=== PATIENT | female | born 1985 ===

== ENCOUNTER 2016-05-10 15:04 | Emergency (ER) | payer OTHER ==
[2016-05-10 16:12] VITALS: BP 133/81
--- NOTE | 2016-05-10 16:43 | UC ---
Respiratory Complaint HPI - HPI Summary HPI Summary: Has been coughing for the past 2 weeks, most recently to the point of vomiting. Feels low in energy and out of breath. Chest sore with coughing, poor sleep. Was on cephalexin following a dental extraction, made no difference. FH of asthma and mother age 59 of pneumonia/COPD - History of Current Complaint Chief Complaint: UCRespiratory Stated Complaint: COUGH,CONGESTION Time Seen by Provider: 05/10/16 16:26 Hx Obtained From: Patient Hx Last Menstrual Period: 26 days ag0 Onset/Duration: Gradual Onset, Lasting Weeks - 2 Severity Initially: Mild Severity Currently: Moderate Character: Cough: Nonproductive Aggravating Factors: Exertion, Deep Breaths Alleviating Factors: Nothing Associated Signs And Symptoms: Positive: Dyspnea, Nasal Congestion, Hoarseness - Risk Factors Pulmonary Embolism Risk Factors: Smoking Cardiac Risk Factors: Smoking - Allergies/Home Medications Allergies/Adverse Reactions: Allergies Allergy/AdvReac Type Severity Reaction Status Date / Time 'cillins AdvReac See Comment Uncoded 05/10/16 16:13 Home Medications: Home Medications Finished Keflex 05/05/16 500 mg PO BID 05/10/16 [History Confirmed 05/10/16] PMH/Surg Hx/FS Hx/Imm Hx Previously Healthy: Yes - smoker x 10 year - Surgical History Surgical History: Yes Surgery Procedure, Year, and Place: - ; tubal ligation 2012 - Family History Known Family History: Positive: Respiratory Disease - mother COPD/ pneumonia age 59; son with asthma - Social History Occupation: Employed Full-time Alcohol Use: None Substance Use Type: None Smoking Status (MU): Heavy Every Day Tobacco Smoker Review of Systems Constitutional: Fatigue Skin: Negative Eyes: Negative ENT: Sore Throat, Ear Ache Respiratory: Cough Cardiovascular: Negative Gastrointestinal: Vomiting - secondary to cough Genitourinary: Negative Motor: Negative Neurovascular: Negative Musculoskeletal: Negative Neurological: Negative Psychological: Negative All Other Systems Reviewed And Are Negative: Yes Physical Exam Triage Information Reviewed: Yes Appearance: Well-Nourished, Ill-Appearing - looks unwell with congested cough Vital Signs: Initial Vital Signs Temp 98.2 F 05/10/16 16:04 Pulse 89 05/10/16 16:04 Resp 18 05/10/16 16:04 BP 133/81 05/10/16 16:04 Pulse Ox 100 05/10/16 16:04 Vital Signs Reviewed: Yes Eyes: Positive: Conjunctiva Clear ENT: Positive: Pharyngeal erythema, TMs normal Dental Exam: Normal Neck: Positive: Supple, Enlarged Nodes @ - right anterior cervical--tender mobile compressible node. Respiratory: Positive: Decreased breath sounds - to both bases, Wheezing - with prolonged expiration Cardiovascular: Positive: RRR, No Murmur Musculoskeletal Exam: Normal Neurological Exam: Normal Neurological: Positive: Alert Psychological Exam: Normal Skin Exam: Normal UC Diagnostic Evaluation - Laboratory O2 Sat by Pulse Oximetry: 100 Respiratory Course/Dx - Course Course Of Treatment: zithromax, albuterol as needed, prednisone, off work. - Differential Dx/Diagnosis Differential Diagnosis/HQI/PQRI: Asthma, Bronchitis, Lower Resp Infection, Sinusitis Provider Diagnoses: bronchitis, smoking dependency Discharge - Discharge Plan Condition: Stable Disposition: HOME Prescriptions: Albuterol 2.5MG/3ML (0.083%)* [Ventolin 2.5 MG/3 ML NEB.MERVIN*] 2.5 mg INH Q6H PRN #60 neb.mervin PRN Reason: Wheezing Azithromyxin RICHAR (NF) [Z-Richar (Zithromax) 250 mg tabs #6] 2 tab PO .TODAY, THEN 1 DAILY #6 tab Nicotine GUM* 1 tab PO Q2H PRN #200 gum PRN Reason: Withdrawal - Nicotine predniSONE TAB* [Deltasone TAB*] 2 tab PO DAILY #10 tab Patient Education Materials: Acute Bronchitis (ED), How to Stop Smoking (ED) Forms: *Work Release
== END 2016-05-10 17:02 | disposition home or self-care (01) ==
LOC: UCCORT 15:04
DX: J40 Bronchitis, not specified as acute or chronic (principal); F17.210 Nicotine dependence, cigarettes, uncomplicated; Z88.0 Allergy status to penicillin
CPT/HCPCS: 99212; G0463

== ENCOUNTER 2016-05-16 09:18 | Emergency (ER) | payer OTHER ==
[2016-05-16 10:31] VITALS: BP 136/83
--- NOTE | 2016-05-16 10:44 | UC ---
Throat Pain/Nasal Mitesh HPI - HPI Summary HPI Summary: compalint of nasal congestion and cough approx 2 weeks ago seen at [facility] 05/10/16-dx with bronchitis- zpack and prednisone took the medication and felt better for 3 days then it returned yesterday evening nasal congestion returned, copius amounts of purulent sputum has had a fever and chills, ears hurt pain in forehead , face and teeth not taking any medication for symptoms - History of Current Complaint Chief Complaint: UCRespiratory Stated Complaint: HEAD CONGESTION Time Seen by Provider: 05/16/16 10:35 Hx Obtained From: Patient Hx Last Menstrual Period: due any day - Allergies/Home Medications Allergies/Adverse Reactions: Allergies Allergy/AdvReac Type Severity Reaction Status Date / Time 'cillins AdvReac See Comment Uncoded 05/16/16 10:31 PMH/Surg Hx/FS Hx/Imm Hx Previously Healthy: No - bronchitis - Surgical History Surgical History: Yes Surgery Procedure, Year, and Place: - ; tubal ligation 2012 - Family History Known Family History: Positive: Respiratory Disease - mother COPD/ pneumonia age 59; son with asthma Negative: Cardiac Disease, Hypertension - Social History Occupation: Employed Full-time Lives: With Family Alcohol Use: None Substance Use Type: None Smoking Status (MU): Heavy Every Day Tobacco Smoker Cessation Counseling: Patient Advised to Stop Review of Systems Constitutional: Fever Skin: Negative Eyes: Negative ENT: Ear Ache, Nasal Discharge Respiratory: Cough Cardiovascular: Negative Gastrointestinal: Negative Genitourinary: Negative Motor: Negative Neurovascular: Negative Musculoskeletal: Negative Neurological: Negative Psychological: Negative All Other Systems Reviewed And Are Negative: Yes Physical Exam Triage Information Reviewed: Yes Appearance: No Pain Distress, Well-Nourished, Ill-Appearing Vital Signs: Initial Vital Signs Temp 100.9 F 05/16/16 10:28 Pulse 116 05/16/16 10:28 Resp 18 05/16/16 10:28 BP 136/83 05/16/16 10:28 Pulse Ox 100 05/16/16 10:28 Vital Signs Reviewed: Yes Eyes: Positive: Conjunctiva Clear ENT: Positive: Pharyngeal erythema, Nasal congestion, Nasal drainage, TM bulging , Other: - frontal and maxillary sinus tenderness. Negative: TM red, Tonsillar swelling, Tonsillar exudate Neck: Positive: No Lymphadenopathy Respiratory: Positive: Lungs clear, Normal breath sounds, No respiratory distress Cardiovascular: Positive: No Murmur, Pulses Normal, Tachycardia Abdomen Description: Positive: Nontender, Soft Bowel Sounds: Positive: Present Musculoskeletal: Positive: No Edema Neurological: Positive: Alert Psychological Exam: Normal Skin Exam: Normal Throat Pain/Nasal Course/Dx - Course Course Of Treatment: exam completed. will treat for secondary infection d/t length of time sinus tenderness - Differential Dx/Diagnosis Differential Diagnosis/HQI/PQRI: Influenza, Pharyngitis, Sinusitis, URI Provider Diagnoses: sinusitis Discharge - Discharge Plan Condition: Stable Disposition: HOME Prescriptions: DOXYcycline CAP(*) [DOXYcycline 100MG CAP(*)] 100 mg PO BID #20 cap Patient Education Materials: Sinusitis (ED) Forms: *Work Release Referrals: Juan Romo MD [Primary Care Provider] - Additional Instructions: SINUSITIS What is Sinusitis? Sinusitis is inflammation or infection of the lining of the sinuses behind the bones in your cheeks or forehead. Sinusitis may occur following a common cold, flu, or other infection; allergies; a tooth infection that spreads to the sinuses; swimming in contaminated water; pressure changes in airplanes at high altitudes; violent sneezing or nose blowing or smoking or breathing other peoples smoke. Symptoms Might Include: Nasal Congestion Sneezing Watery eyes, eye irritation, or eye itching Headaches Pressure in the cheeks Wheezing Trouble smelling Sore throat and coughing may occur Treatment Recommendations: Take medicines as prescribed until completely gone. Drink plenty of fluids. Use saline nose spray to thin the mucous and help the sinuses drain. Use a vaporizer or humidifier. Apply warm compresses to the face or forehead several times a day for 10 to 20 minutes. Call Your Doctor or Return Here IF: Your pain increases during treatment. You develop a high temperature. You develop unusual swelling around the eyes. You have difficulty with your vision. You develop a severe headache, earache, or toothache. You develop increased fever or fever that does not respond to medication such as Tylenol?. You have difficulty breathing or catching your breath. You begin to have any other new symptoms that worry you.
== END 2016-05-16 11:03 | disposition home or self-care (01) ==
LOC: UCCORT 09:18
DX: J32.9 Chronic sinusitis, unspecified (principal); F17.210 Nicotine dependence, cigarettes, uncomplicated; Z88.0 Allergy status to penicillin
CPT/HCPCS: 99212; G0463

== ENCOUNTER 2018-01-20 12:30 | Emergency (ER) | payer BC, OTHER ==
[2018-01-20 13:22] VITALS: BP 135/89
--- NOTE | 2018-01-20 13:39 | UC ---
Throat Pain/Nasal Mitesh HPI - HPI Summary HPI Summary: 32 year old woman comes in with a chief complaint of sinus congestion and chest congestion. Patient's been sick for about a week with upper respiratory tract infection symptoms. Couple of days ago she started with sinus pressure and headache. Her rhinorrhea has turned yellow-green. She's been having chills. Last night she felt chest congestion and hearing some wheezing. - History of Current Complaint Chief Complaint: UCGeneralIllness Stated Complaint: COUGH/CONGESTION Time Seen by Provider: 01/20/18 13:26 Hx Last Menstrual Period: NOVASURE Pain Intensity: 7 - Allergies/Home Medications Allergies/Adverse Reactions: Allergies Allergy/AdvReac Type Severity Reaction Status Date / Time 'cillins AdvReac See Comment Uncoded 05/16/16 10:31 PMH/Surg Hx/FS Hx/Imm Hx Previously Healthy: Yes - Surgical History Surgical History: Yes Surgery Procedure, Year, and Place: - ; tubal ligation 2012. ANTOINETTE. TONSILLECTOMY AND ADENOIDECTOMY - Family History Known Family History: Positive: Respiratory Disease - mother COPD/ pneumonia age 59; son with asthma Negative: Cardiac Disease, Hypertension - Social History Alcohol Use: None Substance Use Type: None Smoking Status (MU): Heavy Every Day Tobacco Smoker Amount Used/How Often: 1/2 PPD Review of Systems Constitutional: Fever, Chills Skin: Negative Eyes: Negative ENT: Sore Throat, Nasal Discharge, Sinus Congestion, Sinus Pain/Tenderness Respiratory: Shortness Of Breath, Cough, Other - SEE HPI Cardiovascular: Negative Gastrointestinal: Negative Motor: Negative Neurovascular: Negative Musculoskeletal: Negative Neurological: Negative Psychological: Negative Is Patient Immunocompromised?: No All Other Systems Reviewed And Are Negative: Yes Physical Exam Triage Information Reviewed: Yes Appearance: No Pain Distress, Well-Nourished, Ill-Appearing - MILD Vital Signs: Initial Vital Signs Temp 98.0 F 01/20/18 13:17 Pulse 92 01/20/18 13:17 Resp 16 01/20/18 13:17 BP 135/89 01/20/18 13:17 Pulse Ox 100 01/20/18 13:17 Vital Signs Reviewed: Yes Eye Exam: Normal Eyes: Positive: Conjunctiva Clear ENT: Positive: Pharyngeal erythema, Nasal congestion, Nasal drainage, TMs normal Neck exam: Normal Neck: Positive: Supple Respiratory Exam: Normal Respiratory: Positive: Lungs clear, Normal breath sounds, No respiratory distress Cardiovascular Exam: Normal Cardiovascular: Positive: RRR Musculoskeletal Exam: Normal Musculoskeletal: Positive: Strength Intact, ROM Intact Neurological Exam: Normal Neurological: Positive: Alert, Muscle Tone Normal Psychological Exam: Normal Psychological: Positive: Normal Response To Family, Age Appropriate Behavior Skin Exam: Normal Throat Pain/Nasal Course/Dx - Course Course Of Treatment: DISCUSSED VIRAL VERSES BACTERIAL INFECTION AND THE ROLE OF ANTIBIOTICS. THE PATIENT WISHES TO BE ON ANTIBIOTICS AT THIS TIME. - Differential Dx/Diagnosis Provider Diagnoses: SINUSITIS. BRONCHITIS WITH BRONCHOSPASM Discharge - Sign-Out/Discharge Documenting (check all that apply): Patient Departure All imaging exams completed and their final reports reviewed: No Studies - Discharge Plan Condition: Stable Disposition: HOME Prescriptions: Albuterol HFA INHALER* [Ventolin HFA Inhaler*] 2 puff INH Q4H PRN #1 mdi PRN Reason: Wheezing DOXYcycline CAP(*) [DOXYcycline 100MG CAP(*)] 100 mg PO BID #20 cap Patient Education Materials: Sinusitis (ED), Acute Bronchitis (ED) Referrals: Juan Romo MD [Primary Care Provider] - Additional Instructions: FOLLOW UP WITH YOUR DOCTOR IF NOT COMPLETELY IMPROVED. GET RECHECKED FOR ANY WORSENING OF YOUR CONDITION OR QUESTIONS OR CONCERNS. - Billing Disposition and Condition Condition: STABLE Disposition: Home
== END 2018-01-20 13:47 | disposition home or self-care (01) ==
LOC: UCCORT 12:30
DX: J20.9 Acute bronchitis, unspecified (principal); Z88.0 Allergy status to penicillin; F17.210 Nicotine dependence, cigarettes, uncomplicated; J32.9 Chronic sinusitis, unspecified
CPT/HCPCS: 99212; G0463